=== PATIENT | male | born 1995 | race Caucasian/White ===

== ENCOUNTER 2017-01-05 22:01 | Emergency (ER) | payer OTHER ==
[2017-01-05 22:09] VITALS: BP 147/68; PULSE 116; RESP 16; TEMP 98.4; O2SAT 95
--- NOTE | 2017-01-05 22:31 | EDPHY ---
H & P Stated Complaint: intermittent vomiting x 1 week, possible hematemesis tonight Time Seen by Provider: 01/05/17 22:26 HPI/ROS: CHIEF COMPLAINT: Vomiting HISTORY OF PRESENT ILLNESS: The patient is a 21-year-old man who complains that he has had intermittent vomiting for the last week and became concerned today because there were streaks of blood. He denies any abdominal pain. He denies fevers. He denies heartburn. He denies any blood in his stool but states that he does have hemorrhoids and occasionally gets blood when he wipes. He is a smoker and states that he has been smoking more than usual lately. He thinks that smoking is causing him to vomit because it makes his mouth very dry and then he gags on his saliva. He denies chest pain or shortness of breath. REVIEW OF SYSTEMS: Constitutional: denies: chills, fever, recent illness, recent injury EENTM: denies: blurred vision, double vision, nose congestion Respiratory: denies: cough, shortness of breath Cardiac: denies: chest pain, irregular heart rate, lightheadedness, palpitations Gastrointestinal/Abdominal: See HPI Genitourinary: denies: dysuria, frequency, hematuria, pain Musculoskeletal: denies: joint pain, muscle pain Skin: denies: lesions, rash, jaundice, bruising Neurological: denies: headache, numbness, paresthesia, tingling, dizziness, weakness Hematologic/Lymphatic: denies: blood clots, easy bleeding, easy bruising Immunologic/allergic: denies: HIV/AIDS, transplant EXAM: GENERAL: Well-appearing, well-nourished and in no acute distress. HEAD: Atraumatic, normocephalic. EYES: Pupils equal round and reactive to light, extraocular movements intact, sclera anicteric, conjunctiva are normal. ENT: TMs normal, nares patent, oropharynx clear without exudates abrasions or blood. Moist mucous membranes. NECK: Normal range of motion, supple without lymphadenopathy or JVD. LUNGS: Breath sounds clear to auscultation bilaterally and equal. No wheezes rales or rhonchi. HEART: Regular rate and rhythm without murmurs, rubs or gallops. ABDOMEN: Soft, nontender, normoactive bowel sounds. No guarding, no rebound. No masses appreciated. BACK: No CVA tenderness, no spinal tenderness, step-offs or deformities EXTREMITIES: Normal range of motion, no pitting or edema. No clubbing or cyanosis. NEUROLOGICAL: Cranial nerves II through XII grossly intact. Normal speech, normal gait. 5/5 strength, normal movement in all extremities, normal sensation PSYCH: Normal mood, normal affect. SKIN: Warm, dry, normal turgor, no visible rashes or lesions. Source: Patient Exam Limitations: No limitations - Personal History Current Tetanus/Diphtheria Vaccine: Yes - Medical/Surgical History Hx Asthma: No Hx Chronic Respiratory Disease: No Hx Diabetes: No Hx Cardiac Disease: No Hx Renal Disease: No Hx Cirrhosis: No Hx Alcoholism: No Hx HIV/AIDS: No Hx Splenectomy or Spleen Trauma: No Other PMH: PMHx: depression and anxiety. PSHx: wisdom tooth extraction - Family History Significant Family History: No pertinent family hx - Social History Smoking Status: Current every day smoker Alcohol Use: Sober Drug Use: None Constitutional: Initial Vital Signs Temperature (C) 36.9 C 01/05/17 22:05 Heart Rate 116 H 01/05/17 22:05 Respiratory Rate 16 01/05/17 22:05 Blood Pressure 147/68 H 01/05/17 22:05 O2 Sat (%) 95 01/05/17 22:05 O2 Delivery Mode Room Air Allergies/Adverse Reactions: No Known Allergies Allergy (Unverified 01/05/17 22:04) Home Medications: Medication Instructions Recorded Wellbutrin Sr 01/05/17 Medical Decision Making ED Course/Re-evaluation: The patient has a normal exam. He thinks the vomiting his from smoking. He declines anti nausea medication. His abdominal exam is benign. He is afebrile. He does not necessarily have symptoms consistent with peptic ulcer disease. I suspect esophageal irritation from vomiting. This does not sound like a significant amount of blood. After our discussion he feels reassured any declines further workup or testing. His vital signs are stable. We discussed indications for returning. He is able to tolerate p.o. here in the emergency department. Differential Diagnosis: Partial list of the Differential diagnosis considered include but were not limited to; vomiting, peptic ulcer disease, and although unlikely based on the history and physical exam, I also considered cancer, obstruction, biliary disease. I discussed these differential diagnoses and the plan with the patient as well as the usual and expected course. The patient understands that the diagnosis is provisional and that in medicine we are not always correct and that further workup is often warranted. Usual and customary warnings were given. All of the patient's questions were answered. The patient was instructed to return to the emergency department should the symptoms at all worsen or return, otherwise to followup with the physician as we discussed. Departure - Departure Disposition: Home, Routine, Self-Care Clinical Impression: Vomiting Qualifiers: Vomiting type: unspecified Vomiting Intractability: non-intractable Nausea presence: with nausea Qualified Code(s): R11.2 - Nausea with vomiting, unspecified Condition: Fair Instructions: Acute Nausea and Vomiting (ED) Referrals: NONE *PRIMARY CARE P,. [Unknown] - As per Instructions Levi Craig MD [Medical Doctor] - As per Instructions
== END 2017-01-05 22:56 | disposition home or self-care (01) ==
DX: R11.2 Nausea with vomiting, unspecified (principal); F17.200 Nicotine dependence, unspecified, uncomplicated